=== PATIENT | male | born 1955 | race Caucasian/White ===

== ENCOUNTER → 2021-06-02 | Day surgery (SDC) | payer MEDICARE ==
[~2021-06-02] VITALS: Ht 188 cm; Wt 400.0 kg
[~2021-06-02] MED LIST: ATOR40TA59 PO; COLE1TAB2 PO; FAMO40TA4 PO; GABA600T7 PO; HYDR25TA PO; INSU100I13 SQ; INSU100V6 SQ; IV RINGERS,LACTATED 1000ML 1,000 ML IV SCH; METF10007 PO; PROPOFOL 10 MG/ML (20ML) VIAL. IV ONE; TRAZ-123 PO
[2021-06-02 09:00] VITALS: BP 165/79
[2021-06-02 09:47] VITALS: BP 142/67
--- NOTE | 2021-06-05 18:33 | PATHOLOGY ---
[facility] Accession Number: [id number] . 01 Material submitted: . PART A: duodenum - DUODENAL BIOPSY R/O CELIAC PART B: rectum - RECTAL POLYP BIOPSY PART C: colon - TRANSVERSE COLON POLYP BIOPSY. Modifiers: transverse PART D: colon - RANDOM COLON BIOPSIES . 01 Clinical history: . DIARRHEA,BLEEDING EGD/COLONOSCOPY . 02 Diagnosis: A. Duodenal biopsies: - Preserved villous architecture with mild chronic inflammation and increased intraepithelial lymphocytes. See comment. . B. Colorectal biopsies, rectal polyp: - Hyperplastic polyp. . C. Colon biopsy, transverse colon polyp: - Tubular adenoma. . D. Colonic mucosa, random colon biopsies: - No significant pathologic abnormalities. (JPM:sai; 06/05/2021) [facility] [place] 06/05/2021 1728 Local . 02 Comment: Sections of the duodenal biopsy reveal segments of duodenal and small intestine mucosa showing preserved villous architecture with mild chronic inflammation and increased intraepithelial lymphocytes. The differential diagnosis of preserved villous architecture with increased intraepithelial lymphocytes includes celiac disease, H. pylori gastritis, nonsteroidal anti-inflammatory drug use, bacterial overgrowth, tropical sprue, and certain autoimmune diseases. Correlate clinically. . Sections of the rectal biopsy reveal a hyperplastic polyp. . Sections of the transverse colon biopsy reveal a tubular adenoma showing no high-grade dysplasia or evidence of malignancy. . Sections of the random colon biopsy reveal multiple segments of colonic mucosa. There is no evidence of a chronic destructive colitis, lymphocytic colitis, or collagenous colitis. (JPM:sai; 06/05/2021) . 02 Electronically signed: . Anibal Dukes MD, Pathologist NPI- [id number] . 01 Gross description: . A. Received in formalin labeled "Nasir Germain, duodenal BX" are multiple bermudez-brown soft tissue fragments measuring in aggregate 2.2 x 0.6 x 0.1 cm. The specimen is submitted entirely in A1. . B. Received in formalin labeled "Nasir Germain, rectal polyp BX" are 2 bermudez-brown soft tissue fragments measuring in aggregate 0.4 x 0.3 x 0.1 cm. The specimen is submitted entirely in B1. . C. Received in formalin labeled "Nasir Germain, transverse colon polyp BX" is a fragment of bermudez-brown soft tissue measuring 0.5 x 0.3 x 0.1 cm. The specimen is submitted entirely in C1. . D. Received in formalin labeled "Nasir Germain, random colon BXs" are multiple bermudez-brown soft tissue fragments measuring in aggregate 2.3 x 1.0 x 0.1 cm. The specimen is submitted entirely in D1. [place] [facility] [place] [facility] 06/04/2021 0936 Local . 02 Pathologist provided ICD-10: K29.80, K62.1, D12.3 . 02 CPT . 195554, [id number], [id number], [id number] Specimen Comment: A courtesy copy of this report has been sent to [phone], [phone] Specimen Comment: 1987 Specimen Comment: Report sent to / DR MYERS Performed at: 01 [facility] [address], [place] [id number] MD Sreedhar Ferreira MD Phone: [phone] Performed at: 02 [facility] [address] [place], [place] [id number] MD Anibal Dukes MD Phone: [phone]
== END | disposition home or self-care (01) ==
LOC: ENDOS 08:21
PROVIDERS: ATTEND Internal Medicine Gastroenterology
DX: R19.7 Diarrhea, unspecified (principal); K64.0 First degree hemorrhoids; K63.89 Other specified diseases of intestine; K31.89 Other diseases of stomach and duodenum; K57.92 Diverticulitis of intestine, part unspecified, without perforation or abscess without bleeding; K63.5 Polyp of colon; K62.1 Rectal polyp; K21.9 Gastro-esophageal reflux disease without esophagitis; E78.00 Pure hypercholesterolemia, unspecified; E11.9 Type 2 diabetes mellitus without complications; G47.30 Sleep apnea, unspecified; M19.90 Unspecified osteoarthritis, unspecified site; F41.9 Anxiety disorder, unspecified; Z90.49 Acquired absence of other specified parts of digestive tract; Z98.890 Other specified postprocedural states; Z79.899 Other long term (current) drug therapy; Z79.4 Long term (current) use of insulin; Z87.891 Personal history of nicotine dependence; Z88.6 Allergy status to analgesic agent; Z88.8 Allergy status to other drugs, medicaments and biological substances
CPT/HCPCS: 43239; 45380; 82962; 88305; J2704